=== PATIENT | male | born 1960 | race Caucasian/White ===

== ENCOUNTER 2018-11-06 21:09 | Inpatient (IN) ==
[2018-11-06] MEDS ORDERED: BENADRYL IM ONE (22:22)
[2018-11-06] MEDS ORDERED: GEODON IM ONE (22:23)
[2018-11-06] MEDS ORDERED: STERILE WATER INJ. INJ ONE (22:23)
[2018-11-06] MEDS ORDERED: NS IV ONE (23:11)
[2018-11-06] MEDS ORDERED: THORAZINE IV ONE (23:11)
[2018-11-06 23:15] LABS: BASO# 0.04 X1000 (0.0-0.2); BASO% 0.5 % (0.0-0.8); EOS# 0.32 X1000 (0.0-0.7); EOS% 3.8 % (0.0-10.0); HEMATOCRIT 36.8 % (42.0-52.0); HEMOGLOBIN 12.9 g/dL (14.0-18.0); IMM GRAN# 0.02 X1000 (0.0-0.04); IMM GRAN% 0.2 % (0.0-0.5); LYMPH# 3.81 X1000 (1.2-3.4); LYMPH% 45.5 % (20.5-51.1); MCHC 35.1 g/dL (33-37); MCV 91.3 FL (81-99); MONO# 0.88 X1000 (0.11-0.59); MONO% 10.5 % (1.7-9.3); MPV 9.7 FL (7.4-10.4); NEUT% 39.5 % (42.2-75.2); PLT 214 X1000 (130-400); RBC 4.03 XMIL (4.7-6.1); RDW 13.1 % (11.5-14.5); WBC 8.37 X1000 (4.8-10.8)
[2018-11-07 00:09] LABS: AGAP 14; ALBUMIN 3.5 g/dL (3.5-5.0); ALKALINE PHOSPHATASE 80 U/L (32-122); BUN 15 mg/dL (8-22); CHLORIDE 105 mmol/L (98-107); COSMO 280; CREATININE 0.6 mg/dL (0.7-1.2); ESTIMATED GFR > 60; GLUCOSE 99 mg/dL (70-104); GOT 20 U/L (10-34); GPT 14 U/L (10-44); POTASSIUM 4.3 mmol/L (3.5-5.1); SODIUM 140 mmol/L (136-145); TCO2 21 mmol/L (25-35); TOTAL PROTEIN 6.9 g/dL (6.3-8.3)
[2018-11-07] MEDS ORDERED: ATIVAN IV ONE (01:36)
[2018-11-07] MEDS ORDERED: NS 1,000 ML IV ONE ×2 (02:34→08:57)
[2018-11-07] MEDS ORDERED: ROCEPHIN IV ONE (02:34)
[2018-11-07 04:44] LABS: UR AMPHETAMINES QUAL NONE DETECTED (NONE DETECT); UR BARBITUATES QUAL NONE DETECTED (NONE DETECT); UR BENZODIAZEPIN QUAL NONE DETECTED (NONE DETECT); UR CANNABINOIDS QUAL NONE DETECTED (NONE DETECT); UR COCAINE QUAL NONE DETECTED (NONE DETECT); UR METHADONE QUAL NONE DETECTED (NONE DETECT); UR METHAMPHETAMINE QUAL NONE DETECTED (NONE DETECT); UR OPIATES QUAL NONE DETECTED (NONE DETECT); UR OXYCODONE QUAL NONE DETECTED (NONE DETECT); UR PCP QUAL NONE DETECTED (NONE DETECT); UR PROPOXYPHENE QUAL NONE DETECTED (NONE DETECT); UR TCA QUAL NONE DETECTED (NONE DETECT)
[2018-11-07 06:05] LABS: BILIRUBIN URINE NEGATIVE (NEGATIVE); BLOOD URINE NEGATIVE (NEGATIVE); CLARITY CLEAR (CLEAR); COLOR YELLOW; GLUCOSE URINE NEGATIVE (NEGATIVE); KETONE URINE NEGATIVE (NEGATIVE); LEUKOCYTES URINE NEGATIVE (NEGATIVE); NITRITE URINE NEGATIVE (NEGATIVE); PH URINE 6.5; PROTEIN URINE NEGATIVE (NEGATIVE); SP GRAVITY URINE 1.005; URINE BACTERIA NEGATIVE /HFP; URINE EPITHELIAL CELLS <10 /HPF (<10); URINE RBC <10 /HPF (<10); URINE WBC <10 /HPF (<10); UROBILINOGEN URINE NORMAL
[2018-11-07 06:06] LABS: URINE SOURCE CLEAN CATCH
--- NOTE | 2018-11-07 06:36 | EKG Report ---
Test Performed on : 11/06/2018 9:19:56 PM Test Reason : CP Blood Pressure : / mmHG Vent. Rate : 073 BPM Atrial Rate : 073 BPM P-R Int : 148 ms QRS Dur : 078 ms QT Int : 370 ms P-R-T Axes : 013 050 018 degrees QTc Int : 407 ms Poor data quality, interpretation may be adversely affected Normal sinus rhythm. Normal ECG No previous ECGs available Unconfirmed Result
[2018-11-07] MEDS ORDERED: ZOFRAN IV PRN (08:42)
[2018-11-07] MEDS ORDERED: TYLENOL PO PRN (08:42)
[2018-11-07] MEDS ORDERED: PATIENT'S OWN MED PO PRN (10:19)
[2018-11-07] MEDS: PRILOSEC PO SCH ×2 (11:23→20:21)
[2018-11-07] MEDS: CALTRATE 600 PO SCH ×2 (11:24→20:21)
[2018-11-07] MEDS: SYNTHROID PO SCH (11:24)
--- NOTE | 2018-11-07 14:05 | HISTORY AND PHYSICAL ---
CHIEF COMPLAINT: Chest pain. 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 The entire history is per the caregiver who noted that he has been grasping and grunting and holding his chest at times. It has been going on for approximately a month and finally worsened yesterday to the point that he was brought to the ER. ALLERGIES: Aspirin and NSAIDs. MEDICATIONS: Xanax 0.5, Colace 100, Synthroid 100, calcium 600 twice daily, Pepcid 20 twice daily, and thioridazine 100 b.i.d. PAST MEDICAL HISTORY: Hypertension, chronic reflux, autism, hypothyroidism. PAST SURGICAL HISTORY: No reported surgical history. REVIEW OF SYSTEMS: As noted above, otherwise unobtainable from Mr. Noguera. His sitter denies any GI or issues to their knowledge. Denies any fevers, chills, cough or congestion. FAMILY HISTORY: Noncontributory. SOCIAL HISTORY: The patient does not smoke, drink or use illicit substances. He lives in a senior care. PHYSICAL EXAMINATION: VITAL SIGNS: Temperature is 97.8, pulse 91, respiratory rate 18, blood pressure is stable. GENERAL: The patient is lying in the bed. He is in no current respiratory distress. He is alert and does attempt to follow some commands. HEENT: Normocephalic. NECK: Supple. CARDIOVASCULAR: Regular rate. No murmurs. CHEST: Clear, nonlabored. No wheezes, no crackles. ABDOMEN: Soft. Nondistended, nontender currently, although in the ER, he had some suprapubic tenderness prior to in-and-out catheterization. NEUROLOGICAL: The staff denies any knowledge of any focal neurological changes. SKIN: Warm and dry. No rashes. ASSESSMENT: 1. Acute urinary retention. He had in-and-out cath in the ER and had almost 1100 mL drained. 2. Acute metabolic encephalopathy, likely secondary to his urinary retention. 3. Chest pain. Unsure of the etiology of this. Certainly could be related to his bladder distention. 4. Mental retardation, cognitive impairment. 5. Others. PLAN: We will continue to follow the patient in the hospital. We will check urine culture, as he certainly could have an infection causing his urinary retention. We will continue to follow. We will not replace his Singleton catheter unless symptoms require it. cc: Dennis Pittman MD
[2018-11-07] MEDS: COLACE PO SCH (20:21)
[2018-11-07] MEDS: PEPCID PO SCH (20:21)
[2018-11-07] MEDS ORDERED: ROCEPHIN 1 GM in NS 50 ML IV SCH (21:00)
--- NOTE | 2018-11-07 21:33 | PROVIDER DOCUMENTATION ---
This chart was entered by Yoselyn Tolentino Scribe, acting as scribe for Pita Owen MD. HPI-General Adult - General Chief Complaint: Chest Pain Stated Complaint: SOB, CHEST PAIN Time Seen by Provider: 11/06/18 21:31 Source: patient Allergies/Adverse Reactions: Patient Allergies Allergy/AdvReac Type Severity Reaction Status Date / Time aspirin Allergy Unknown Verified 10/07/18 07:53 NSAIDS (Non-Steroidal Allergy Unknown Verified 10/07/18 07:53 Anti-Inflamma Home Medications: Home Medication List Medication Instructions Recorded Confirmed Last Taken Type Calcium Carbonate 600 mg PO BID 10/31/14 11/07/18 10/31/14 History Docusate Sodium [Colace] 100 mg PO BID 10/31/14 11/07/18 10/30/14 History Famotidine 20 mg PO BID 10/31/14 11/07/18 10/31/14 History Levothyroxine [Synthroid] 150 microgm PO DAILY 10/31/14 11/07/18 10/31/14 History Omeprazole 20 mg PO BID 10/31/14 11/07/18 10/31/14 History Fluticasone 50 Mcg Nasal [place] 1 spray INTRANASAL BID 11/07/18 11/07/18 Unknown History [Flonase] Guaifenesin/Phenylephrine HCl 1 tab PO Q8H PRN PRN 11/07/18 11/07/18 Unknown History [Deconex Ir Tablet] Polyethylene Glycol 3350 [Miralax] 17 gm PO DAILY 11/07/18 11/07/18 Unknown History - History of Present Illness -Gen Adult Nature of Presenting Problems: 58 yom c/o pt is nonverbal, blind MR, caregiver is historian. pt is gasping, grunting and holding chest. caregiver sts pt has had symptoms for 1 month but became worse tonight. pt pcp is Dr. gao. Review of Systems - Adult - REVIEW OF SYSTEMS - ADULT Constitutional: reports: no symptoms reported Eyes: reports: no symptoms reported Ears, Nose, Mouth & Throat: reports: no symptoms reported Cardiovascular: reports: see HPI, chest pain. denies: palpitations, poor circulation, syncope Respiratory: reports: see HPI, shortness of breath. denies: hemoptysis, pleurisy, wheezing Gastrointestinal: reports: no symptoms reported Genitourinary: reports: no symptoms reported Musculoskeletal: reports: no symptoms reported Integumentary: reports: no symptoms reported Neurological: reports: no symptoms reported Psychiatric: reports: no symptoms reported Endocrine: reports: no symptoms reported Hematologic/Lymphatic: reports: no symptoms reported Allergic/Immunologic: reports: no symptoms reported All Other Systems: Reviewed and Negative Past History - Adult - PAST MEDICAL HISTORY-ADULT Review of Records: reports: Old Records Reviewed, Nursing Assessment Review, Medications Reviewed, Social history reviewed & non-contributory. Major Childhood Illnesses: reports: denies history Cardiovascular: reports: HTN Respiratory: reports: denies history Gastrointestinal: reports: GERD Obstetrical/Gynecological: reports: denies history Genitourinary: reports: denies history Musculoskeletal: reports: denies history Neurological: reports: denies history Psychiatric: reports: other (autism) Endocrine/Immune: reports: thyroid disorder Other Conditions: reports: denies history - PRIOR SURGERIES/PROCEDURES Surgical/Procedure History: reports: reviewed, not pertinent - PRIOR HOSPITALIZATIONS Prior Hospitalizations: reports: other - IMMUNIZATION STATUS Childhood Immunizations: See Nurse Assessment Flu Vaccine: See Nurse Assessment - FAMILY HISTORY Family History: reviewed, not pertinent - SOCIAL HISTORY Smoking: non-smoker Substance Use: none/never Physical Exam-General - PHYSICAL EXAM-ADULT Initial Vital Signs Reviewed: Yes - CONSTITUTIONAL General Appearance: alert, mild distress. negative: cachetic, lethargic, combative - EYES Eyes: other (blind bilat). negative: meningismus, photophobia, subconjunctival hemorrhage - HEAD, EARS, NOSE, MOUTH & THROAT HENMT: normocephalic/atraumatic, moist mucous membranes, normal ENT inspection - NECK Neck: non-tender, full range of motion, supple, normal inspection - RESPIRATORY Respiratory: chest non-tender, lungs clear, normal breath sounds - CARDIOVASCULAR Cardiovascular: normal peripheral pulses, regular rate, rhythm - GASTROINTESTINAL (ABDOMEN) Abdominal Exam: normal bowel sounds, non tender, soft - LYMPHATIC Lymphatic: no adenopathy - MUSCULOSKELETAL Back Exam: normal inspection, no CVA tenderness, no vertebral tenderness Extremity: normal range of motion, non-tender, normal inspection Peripheral Pulses: radial (R): 2+, radial (L): 2+ - SKIN Integumentary: normal color, normal turgor, warm/dry - NEUROLOGIC Neurologic: grossly normal, no motor/sensory deficits - PSYCHIATRIC Psych/Mental Status: normal mood/affect, normal thought content, normal thought process, oriented x 3 Progress - PLAN OF CARE/RESULTS Progress/Plan/Lab Results: Vital Signs - 8 hr 11/06/18 21:11 Temperature 97.8 F Pulse Rate 91 H Result Diagrams: 11/06/18 23:06 11/06/18 23:06 - EKG 1 Time of EKG reading by physician:: 21:19 EKG Read and Signed by:: Pita Owen EKG Interpretation (*Must complete 3 of following elements*): Normal Rate: 73 Rhythm: nsr [place]: normal QRS: normal [place] Interval: normal ST Wave: normal Departure - Departure Date of Disposition Decision: 11/07/18 Time of Disposition Decision: 05:36 DIAGNOSIS: Dyskinesia, Unusual change in behavior, Urinary retention Disposition: ADMITTED INPATIENT 09 Certified Medical Emergency: Emergent Condition: Good - Critical Care Note This patient required my direct & personal management of CC.: No Attestation - Physician/ PARTH Attestation Patient care was provided by Advanced Practice Provider:: No The physician spent face to face time with patient:: Yes Advanced Practice Provider documentation review:: Supervising physician onsite and consulted in the evaluation and care of this patient. The physician did have a face to face encounter with the patient. This chart was documented by the indicated scribe, (Yoselyn Tolentino Scribe) and accurately reflects the services I performed and decisions made by me, Pita Owen MD, as attested by the provider's signature.
[2018-11-08] MEDS: PRILOSEC PO SCH ×2 (06:18→21:45)
[2018-11-08] MEDS: SYNTHROID PO SCH (06:19)
[2018-11-08] MEDS ORDERED: ATIVAN IV ONE (08:00)
[2018-11-08] MEDS: MIRALAX PO SCH (08:31)
[2018-11-08] MEDS: PEPCID PO SCH ×2 (08:32→21:44)
[2018-11-08] MEDS: FLOMAX PO SCH (08:32)
[2018-11-08] MEDS: COLACE PO SCH ×2 (08:32→21:44)
[2018-11-08] MEDS: CALTRATE 600 PO SCH ×2 (08:32→21:44)
[2018-11-08 09:34] LABS: HEMATOCRIT 36.7 % (42.0-52.0); HEMOGLOBIN 12.7 g/dL (14.0-18.0); MCH 31.9 PG (27-31); MCHC 34.6 g/dL (33-37); MCV 92.2 FL (81-99); MPV 9.7 FL (7.4-10.4); RBC 3.98 XMIL (4.7-6.1); RDW 13.1 % (11.5-14.5); WBC 5.37 X1000 (4.8-10.8)
[2018-11-08 09:53] LABS: AGAP 11; ALKALINE PHOSPHATASE 91 U/L (32-122); BUN 8 mg/dL (8-22); CHLORIDE 104 mmol/L (98-107); COSMO 282; CREATININE 0.5 mg/dL (0.7-1.2); ESTIMATED GFR > 60; GLUCOSE 145 mg/dL (70-104); GOT 21 U/L (10-34); GPT 17 U/L (10-44); MAGNESIUM 1.8 mg/dL (1.5-2.7); POTASSIUM 4.3 mmol/L (3.5-5.1); SODIUM 141 mmol/L (136-145); TCO2 27 mmol/L (25-35); TOTAL PROTEIN 6.6 g/dL (6.3-8.3)
--- NOTE | 2018-11-08 10:49 | PROGRESS NOTE ---
DATE: 11/08/2018 SUBJECTIVE: The patient's sitter denies any complaints. He is currently sitting up eating. However, he has had some difficulty urinating, did not urinate at all last night. He was able to urinate approximately 400 mL this morning. We will check a bladder scan. EXAM: Temperature 97.9, pulse 80, respiratory 18, blood pressure 123/73.General: Patient is awake, eating breakfast. He is in no distress. HEENT: Normocephalic. Neck: Supple. Cardiovascular: Regular rate. Chest: Chest, clear nonlabored. Abdomen: Soft, nondistended currently. Extremities: Moves all extremities. ASSESSMENT: 1. Acute urinary retention, uncertain etiology. Urine culture is pending. We will also start him home on Flomax for benign prostatic hypertrophy. 2. Acute metabolic encephalopathy appears resolved. 3. Chronic severe cognitive impairment. PLAN: Unfortunately due to patient's cognitive impairment, it is impossible to get a true symptomatology from him. We will continue to follow clinically. We will place him on Flomax. We will attempt a bladder scan and will follow. Hopefully home over the next 1 or 2 days if urinary retention cc: Dennis Pittman MD [facility]
[2018-11-09] MEDS: SYNTHROID PO SCH ×2 (05:52→06:03)
[2018-11-09] MEDS: PRILOSEC PO SCH (06:02)
[2018-11-09] MEDS: CALTRATE 600 PO SCH (08:41)
[2018-11-09] MEDS: FLOMAX PO SCH (08:41)
[2018-11-09] MEDS: PEPCID PO SCH (08:41)
[2018-11-09] MEDS: MIRALAX PO SCH (08:41)
[2018-11-09] MEDS: COLACE PO SCH (08:41)
[2018-11-09] MEDS ORDERED: SUDAFED PO ONE (14:50)
[2018-11-09] MEDS ORDERED: ZOFRAN IV PRN (14:55)
[2018-11-09 16:15] VITALS: BP 118/75
--- NOTE | 2018-11-12 11:48 | DISCHARGE SUMMARY ---
ADMISSION DATE: 11/07/2018 DISCHARGE DATE: 11/09/2018 ADDENDUM REPORT DISCHARGE ADDENDUM: SUBJECTIVE: This was on the day of discharge. He is sitting up in bed. He is naked, which I think he does that periodically. OBJECTIVE: Vital signs are stable 109/67, heart rate 80, respiratory rate 18, temperature was 97.6 degrees. Cardiovascular is regular rate and rhythm. Pulmonary: Bilateral breath sounds clear to auscultation. Gastrointestinal: Soft, nontender, nondistended. Bowel sounds are positive. Extremity: With no clubbing or cyanosis. Lymphatic: No peripheral edema. Neurological: Nonfocal. LABORATORY DATA: I do not have any new data today. PROBLEM LIST: 1. Urinary retention. He seems to have voided without difficulty. 2. He does have some sinus congestion. We will give him some Sudafed. We anticipate discharge today. I will add Flomax to his regimen for his urinary retention. Follow up with his primary care provider, who is Suzan Cid. cc: Osman Bustamante MD
--- NOTE | 2018-11-12 13:28 | DISCHARGE SUMMARY ---
ADMISSION DATE: 11/07/2018 DISCHARGE DATE: 11/09/2018 ADMISSION DIAGNOSIS: 1. Acute urinary retention. 2. Acute metabolic encephalopathy secondary to his urinary retention. 3. Chest pain unknown etiology. 4. Mental retardation with cognitive impairment. DISCHARGE DIAGNOSIS: 1. Acute urinary retention uncertain etiology, culture pending. Started on Flomax for benign prostatic hyperplasia. 2. Acute metabolic encephalopathy that resolved. 3. Chronic severe cognitive impairment. CONSULTATIONS: None. SURGERIES OR PROCEDURES: In the ER, had a straight catheterization performed, which drained 1100 mL of urine. HOSPITAL COURSE: Mr. 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 The history per the caregiver, who was at the bedside, stated he had been grasping and grunting and holding his chest at times, had been going on and off for about a month and then worsened the day before admission and the day before he was brought to the ER. When an in-and-out straight catheterization was performed, he had almost 1100 mL of urine output. He had acute metabolic encephalopathy secondary to the urinary retention. It was unknown if chest pain was related to his bladder distention, otherwise he was not given a Singleton catheter. He had a culture obtained, which showed there was no results on that. White count was normal. Urinalysis was negative for any urinary tract infection. He had negative drugs in his system. He continued to void urine after his day of his admission, so there really was an unclear etiology or reason for his urinary retention except for enlarged prostate, which he was started on Flomax for. DISCHARGE VITAL SIGNS: Temperature 97.6, heart rate 80, respiratory rate 18, blood pressure 109/67, O2 saturation 100% on room air. DISCHARGE LAB DATA: On the , white blood cells 5000, hemoglobin 12, hematocrit 36, platelet count 251. Sodium 141, potassium 4.3, BUN 8, creatinine 0.5, glucose 145, calcium 9.0, magnesium 1.8, bilirubin 0.3, AST 21, ALT 17, albumin 4.0. Urinalysis negative. Urine drug screen negative. PERTINENT IMAGING: No imaging. He did have an EKG, which shows normal sinus rhythm, rate was 73, QTc was 407. DISCHARGE MEDICATIONS: 1. Calcium carbonate 600 mg p.o. twice daily. 2. Colace 100 mg p.o. twice daily. 3. Guaifenesin phenylephrine 1 tablet p.o. every 8 hours p.r.n. 4. Pepcid 20 mg p.o. twice daily. 5. Fluticasone nasal spray. 6. MiraLAX 17 g p.o. daily. 7. Omeprazole 20 mg p.o. twice daily. 8. Synthroid 150 mcg p.o. daily. 9. Flomax 0.4 mg p.o. daily. DISCHARGE DIET: Mechanical soft. DISCHARGE ACTIVITY: As tolerated. DISCHARGE PHYSICIAN FOLLOWUP: Dr. Suzan Cid. DISCHARGE INSTRUCTIONS: If symptoms return seek medical advice. If your condition changes, contact a physician and/or return to the emergency department. Changes may include but are not limited to shortness of breath, increased fatigue, excessive bleeding, unexplained weight loss or gain, unimaginable pain, signs or symptoms of infection. DISCHARGE DISPOSITION: Home. Dictated by FRANKIE Carias for Osman Bustamante MD cc: FRANKIE Carias MD
== END 2018-11-09 17:29 | disposition home or self-care (01) | DRG 725 ==
LOC: P.MEDSURG 21:09 → P.ED 21:09 → SUATTDRO 11-07 08:18 → OBSVTOIN 11-07 08:18
PROVIDERS: ATTEND Internal Medicine
CPT/HCPCS: 51701; 80053; 80101; 80104; 80301; 80305; 80307; 80324; 80345; 80346; 80353; 80358; 80361; 80365; 81001; 83735; 83880; 83992; 84484; 85025; 85027; 93005; 96361; 96365; 96372; 96375; 99285; A9270; G0431; G0434; G0477; G0479; G0480; J0696; J1200; J2060; J3230; J3486; J7030; P9612